=== PATIENT | female | born 1990 | race American Indian/Alaskan Native ===

== ENCOUNTER 2018-11-07 18:52 | Emergency (ER) | payer MEDICAID ==
--- NOTE | 2018-11-07 19:22 | Emergency Department Report ---
Blank Doc - Documentation Documentation: This is a 27-year-old female that presents with vaginal discharge. This initial assessment/diagnostic orders/clinical plan/treatment(s) is/are subject to change based on patient's health status, clinical progression and re- assessment by fellow clinical providers in the ED. Further treatment and workup at subsequent clinical providers discretion. Patient/guardians urged not to elope from the ED as their condition may be serious if not clinically assessed and managed. Initial orders include: 1- Patient sent to [facility] for further evaluation and treatment 2- UA 3- wet prep/GC
[2018-11-07 19:25] VITALS: BP 130/72
[2018-11-07 20:32] LABS: Bilirubin,Urine NEG (Negative); Blood,Urine NEG (Negative); Color,Urine Yellow (Yellow); Mucus,Urine 2+ /HPF; Protein,Urine <15 mg/dL mg/dL (Negative)
[2018-11-07 20:38] LABS: HCG Qualitative,Urine Negative (Negative)
--- NOTE | 2018-11-07 23:13 | Emergency Department Report ---
ED Female HPI - General Chief complaint: Urogenital-Female Stated complaint: VAGINAL DISCHARGE Time Seen by Provider: 11/07/18 19:20 Source: patient Mode of arrival: Ambulatory Limitations: No Limitations - History of Present Illness Initial comments: 27-year-old -[place] female presents to the emergency room for complaint of vaginal discharge 2 days. Patient reports that the vaginal discharge has an odor. Patient is sexually active with both males and females protected. Patient denies any fever chills or nausea no vomiting or abdominal pain. Patient denies any dysuria hematuria. Patient has no past medical history currently takes no medications on a daily basis has no known drug allergies and does not have a primary care provider. MD Complaint: vaginal discharge -: days(s) (2) Are you Now?: No Last Menstrual Period: 08/31/18 EDC: 06/07/19 - Related Data Previous Rx's Medication Instructions Recorded Last Taken Type Azithromycin [Zithromax] 250 mg PO ONCE #4 tablet 11/07/18 Unknown Rx metroNIDAZOLE [Metronidazole] 500 mg PO BID #14 tablet 11/07/18 Unknown Rx Allergies Allergy/AdvReac Type Severity Reaction Status Date / Time No Known Allergies Allergy Unverified 11/07/18 18:56 ED Review of Systems ROS: Stated complaint: VAGINAL DISCHARGE Other details as noted in HPI Comment: All other systems reviewed and negative Genitourinary: discharge ED Past Medical Hx - Past Medical History Previous Medical History?: No - Surgical History Past Surgical History?: No - Social History Smoking Status: Never Smoker Substance Use Type: None - Medications Home Medications: Home Medications Medication Instructions Recorded Confirmed Last Taken Type Azithromycin [Zithromax] 250 mg PO ONCE #4 tablet 11/07/18 Unknown Rx metroNIDAZOLE [Metronidazole] 500 mg PO BID #14 tablet 11/07/18 Unknown Rx ED Physical Exam - General Limitations: No Limitations General appearance: alert, in no apparent distress - Head Head exam: Present: atraumatic, normocephalic - Eye Eye exam: Present: normal appearance - ENT ENT exam: Present: mucous membranes moist - Cardiovascular Cardiovascular Exam: Present: regular rate, normal rhythm. Absent: systolic murmur, diastolic murmur, rubs, gallop - GI/Abdominal GI/Abdominal exam: Present: soft, normal bowel sounds - External exam: Present: normal external exam Speculum exam: Present: vaginal discharge, cervical discharge Bi-manual exam: Present: normal bi-manual exam. Absent: cervical motion tendernes, adnexal tenderness - Extremities Exam Extremities exam: Present: normal inspection - Neurological Exam Neurological exam: Present: alert, oriented X3 - Psychiatric Psychiatric exam: Present: normal affect, normal mood - Skin Skin exam: Present: warm, dry, intact, normal color. Absent: rash ED Course Vital Signs 11/07/18 19:24 Temperature 98.5 F Pulse Rate 74 Respiratory 18 Rate Blood Pressure 130/72 O2 Sat by Pulse 99 Oximetry ED Medical Decision Making - Lab Data Lab Results 11/07/18 Range/Units 20:00 Urine Color Yellow (Yellow) Urine Turbidity Clear (Clear) Urine pH 6.0 (5.0-7.0) Ur Specific [place] 1.039 H (1.003-1.030) Urine Protein <15 mg/dl (Negative) mg/dL Urine Glucose (UA) Neg (Negative) mg/dL Urine Ketones Neg (Negative) mg/dL Urine Blood Neg (Negative) Urine Nitrite Neg (Negative) Urine Bilirubin Neg (Negative) Urine Urobilinogen 4.0 (<2.0) mg/dL Ur Leukocyte Esterase Tr (Negative) Urine WBC (Auto) 2.0 (0.0-6.0) /HPF Urine RBC (Auto) 1.0 (0.0-6.0) /HPF U Epithel Cells (Auto) 2.0 (0-13.0) /HPF Urine Mucus 2+ /HPF Urine HCG, Qual Negative (Negative) - Medical Decision Making Patient has been evaluated by this provider in [facility]. Wet prep shows positive for greater than 20% clue cells and moderate amount of trichomonas. Patient be treated with azithromycin. Critical care attestation.: If time is entered above; I have spent that time in minutes in the direct care of this critically ill patient, excluding procedure time. ED Disposition Clinical Impression: Bacterial vaginosis, Trichomonas vaginalis (TV) infection Disposition: TO HOME OR SELFCARE Is pt being admited?: No Does the pt Need Aspirin: No Condition: Stable Instructions: Bacterial Vaginosis (ED), Trichomoniasis (ED), Sexually Transmitted Diseases (ED) Additional Instructions: Complete antibiotics as prescribed. Please refrain from intercourse until your partners have been tested and treated. Prescriptions: metroNIDAZOLE [Metronidazole] 500 mg PO BID #14 tablet Azithromycin [Zithromax] 250 mg PO ONCE #4 tablet Forms: STI Treatment and Prevention
[2018-11-07] MEDS ORDERED: XYLOCAINE 1% MPF 5 mL INFILTRATI ONE (23:14)
[2018-11-07] MEDS ORDERED: ROCEPHIN IM ONE (23:14)
== END 2018-11-07 23:51 | disposition home or self-care (01) ==
LOC: ED 18:52
DX: A59.01 Trichomonal vulvovaginitis (principal)
CPT/HCPCS: 81001; 81025; 87210; 87591; 96372; 99284; J0696